=== PATIENT | male | born 1985 | race Two or more races ===

== ENCOUNTER 2016-10-20 07:55 | Emergency (ER) | payer MEDICAID ==
[2016-10-20] MEDS ORDERED: NS 1,000 ML IV ONE (08:39)
--- NOTE | 2016-10-20 08:45 | EDPHY ---
H & P Stated Complaint: "FEELS DEHYDRATED" FOR 24 HOURS, Time Seen by Provider: 10/20/16 08:10 HPI/ROS: CHIEF COMPLAINT: dehydration, flank pain HISTORY OF PRESENT ILLNESS: 31-year-old male presents emergency complaining of dehydration and "kidney pain". Pt is homeless and has been walking a lot the last few days. He states he went 2 days without drinking anything because the water everywhere didn't taste right. He reports decreased urination. Patient has a history anxiety and depression. He takes gabapentin and Effexor. Patient reports he takes some twice daily and he feels like they keep him awake at night. He has an appointment with his psychiatrist in the next couple weeks and he will review his meds at this time. Patient states he has not use methamphetamines for 7 months. He denies auditory or visual hallucinations. Patient denies nausea, vomiting or diarrhea, no abdominal pain. No fevers. REVIEW OF SYSTEMS: A comprehensive 10 point review of systems is otherwise negative aside from elements mentioned in the history of present illness. Source: Patient Exam Limitations: No limitations - Personal History Current Tetanus/Diphtheria Vaccine: Yes Current Tetanus Diphtheria and Acellular Pertussis (TDAP): Yes - Medical/Surgical History Hx Asthma: No Hx Chronic Respiratory Disease: No Hx Diabetes: No Hx Cardiac Disease: No Hx Renal Disease: No Hx Cirrhosis: No Hx Alcoholism: No Hx HIV/AIDS: No Hx Splenectomy or Spleen Trauma: No Other PMH: bipolar, ANXIETY, - Social History Smoking Status: Current every day smoker - Physical Exam Exam: Physical Exam Gen: Alert and Oriented, NAD HEENT: PERRL, dry mucous membranes NECK: no meningismus CV: regular rate and regular rhythm PULM: CTAB, no wheezes ABDOMEN: soft, non tender to palpation, BS present BACK: No CVA tenderness NEURO: Neurologically grossly intact EXTREMITIES: normal appearing SKIN: no rash or break in skin on exposed skin PSYCH: answers questions appropriately. Constitutional: Initial Vital Signs Temperature (C) 36.7 C 10/20/16 07:58 Heart Rate 85 10/20/16 07:58 Respiratory Rate 16 10/20/16 07:58 Blood Pressure 115/62 10/20/16 07:58 O2 Sat (%) 97 10/20/16 07:58 O2 Delivery Mode Room Air Allergies/Adverse Reactions: No Known Allergies Allergy (Verified 03/14/16 13:52) Home Medications: Medication Instructions Recorded Gabapentin [Neurontin 300 MG (*)] 600 mg PO TID 01/03/16 Medical Decision Making ED Course/Re-evaluation: IV established, i-STAT obtained to evaluate for renal function, urinalysis obtained, patient is given 1 L of normal saline. Chemistries and urinalysis are unremarkable. Patient has normal vital signs. He reports feeling better after receiving IV fluids. He will be discharged home. I have encouraged him to continue drinking water. The patient has an appointment with his psychiatrist in the next couple weeks to evaluate his medications that the patient thinks are keeping him awake at night. The patient is given return precautions for any new symptoms or concerns. Differential Diagnosis: Diagnosis considered but not limited to urinary tract infection, dehydration, pyelonephritis - Data Points Laboratory Results: 10/20/16 10/20/16 08:53 08:50 POC Hgb 13.9 gm/dL L gm/dL (14.5-17.3) POC Hct 41 % L % (42.8-50.6) POC Sodium 139 mEq/L mEq/L (134-144) POC Potassium 4.2 mEq/L mEq/L (3.3-5.0) POC Chloride 102 mEq/L mEq/L (96-108) POC BUN 12 mg/dL mg/dL (7-23) POC Creatinine 0.8 mg/dL mg/dL (0.8-1.5) POC Glucose 118 mg/dL H mg/dL (70-100) Urine Color PALE YELLOW Urine Appearance CLEAR Urine pH 7.0 (5.0-7.5) Ur Specific [place] 1.006 (1.002-1.030) Urine Protein NEGATIVE (NEGATIVE) Urine Ketones NEGATIVE (NEGATIVE) Urine Blood NEGATIVE (NEGATIVE) Urine Nitrate NEGATIVE (NEGATIVE) Urine Bilirubin NEGATIVE (NEGATIVE) Urine Urobilinogen NEGATIVE EU EU (0.2-1.0) Ur Leukocyte Esterase NEGATIVE (NEGATIVE) Ur Culture Indicated? NOT INDICATED (NI) Urine Glucose NEGATIVE (NEGATIVE) Medications Given: Discontinued Medications Sodium Chloride (Ns) 1,000 mls @ 0 mls/hr IV ONCE ONE PRN Reason: Wide Open Stop: 10/20/16 08:40 Last Admin: 10/20/16 09:00 Dose: 1,000 mls Point of Care Test Results: 10/20/16 08:53 POC Sodium 139 POC Potassium 4.2 POC Chloride 102 POC BUN 12 POC Creatinine 0.8 POC Glucose 118 H Departure - Departure Disposition: Home, Routine, Self-Care Clinical Impression: Homelessness Condition: Good Instructions: Dehydration (ED) Additional Instructions: You need to drink plenty of water, this is important. Follow-up with your psychiatrist as scheduled to discuss your medications that keep you awake. Referrals: JAMAICA MURRAY [Other] - As per Instructions
[2016-10-20 09:07] LABS: COLOR PALE YELLOW; LEUKOCYTE ESTERASE,URINE NEGATIVE (NEGATIVE); NITRITE,URINE NEGATIVE (NEGATIVE)
[2016-10-20 09:46] VITALS: BP 110/67; PULSE 82; RESP 18; TEMP 98.2; O2SAT 95
== END 2016-10-20 09:53 | disposition home or self-care (01) ==
DX: Z59.0 Homelessness (principal); F17.200 Nicotine dependence, unspecified, uncomplicated
CPT/HCPCS: 82947-QW

== ENCOUNTER 2016-11-03 18:11 | Emergency (ER) | payer MEDICAID ==
[2016-11-03 18:32] VITALS: O2SAT 96
[2016-11-03] MEDS ORDERED: NS 1,000 ML IV ONE (18:46)
--- NOTE | 2016-11-03 18:46 | EDPHY ---
H & P Time Seen by Provider: 11/03/16 18:28 HPI/ROS: Chief complaint. Shocking sensation HPI. 31-year-old male presents with 5 days of shocking sensations that come in waves to face arms and legs. No precipitating factors. It is not worse with movement or breathing. He has no headache or change in his vision. No neck pain, chest pain, shortness of breath, abdominal pain. He does have somewhat soreness to his low back. No swelling. No trauma. He has a history of anxiety and depression and bipolar illness and has not been taking his Neurontin and FX or regularly for the last 5 days. No similar symptoms previously ROS Constitutional. no fever/chills, no weakness Eyes. no problems with vision ENT. no sore throat, no nasal drainage Cardiovascular. no chest pain Respiratory. no shortness of breath, no cough Abdominal. no abdominal pain, no nausea/vomiting, no diarrhea . no problems urinating MS. no calf pain/swelling, no neck/back pain, no joint pain Skin. no rash Lymph. no swollen glands Neuro. Shocking sensation to face arms and legs Past Medical/Surgical History: Anxiety, depression, bipolar illness Social History: Single, daily smoker, no alcohol Smoking Status: Current every day smoker Physical Exam: General Appearance: Alert well-developed male no distress vital signs are stay Eyes: Pupils equal and round no pallor or injection. ENT, Mouth: Mucous membranes are moist. Respiratory: There are no retractions, lungs are clear to auscultation. Cardiovascular: Regular rate and rhythm. Gastrointestinal: Abdomen is soft and nontender, no masses, bowel sounds normal. Neurological: Awake and alert, sensory and motor exams grossly normal. Skin: Warm and dry, no rashes. Musculoskeletal: Neck is supple nontender. Extremities symmetrical, full range of motion. Psychiatric: Patient is oriented X 3, there is no agitation. Constitutional: Initial Vital Signs Temperature (C) 36.9 C 11/03/16 18:30 Heart Rate 68 11/03/16 18:30 Respiratory Rate 16 11/03/16 18:30 Blood Pressure 121/78 H 11/03/16 18:30 O2 Sat (%) 96 11/03/16 18:30 O2 Delivery Mode Room Air Allergies/Adverse Reactions: No Known Allergies Allergy (Verified 03/14/16 13:52) Home Medications: Medication Instructions Recorded Gabapentin [Neurontin 300 MG (*)] 600 mg PO TID 01/03/16 Effexor 11/03/16 Medical Decision Making - Diagnostics EKG Interpretation: EKG interpreted by me shows normal sinus rhythm normal interval and axis. QRS is normal there is no significant ST elevation or depression. No arrhythmia. The rate is 65 Procedures: IV normal saline ED Course/Re-evaluation: Re-evaluation at 7:30 p.m.. Patient is stable. He and I discussed EKG and laboratory evaluation. We discussed treatment plan including criteria for return importance of follow-up and further evaluation. He is encouraged to take his medication regularly. Patient expresses understanding and agreement Differential Diagnosis: Patient complains of paresthesias and shocking type sensation. This could be a neuropathy. He is encouraged to take Neurontin which he has been per already prescribed for this. There is no evidence for acute illness. - Data Points Laboratory Results: Laboratory Results 11/03/16 19:00 11/03/16 19:00 11/03/16 11/03/16 19:00 19:00 WBC 5.93 10^3/uL 10^3/uL (3.80-9.50) RBC 4.30 10^6/uL L 10^6/uL (4.40-6.38) Hgb 13.7 g/dL g/dL (13.7-17.5) Hct 39.6 % L % (40.0-51.0) MCV 92.1 fL fL (81.5-99.8) MCH 31.9 pg pg (27.9-34.1) MCHC 34.6 g/dL g/dL (32.4-36.7) RDW 13.1 % % (11.5-15.2) Plt Count 230 10^3/uL 10^3/uL (150-400) MPV 8.9 fL fL (8.7-11.7) Neut % (Auto) 44.0 % % (39.3-74.2) Lymph % (Auto) 38.6 % % (15.0-45.0) Keith % (Auto) 10.6 % % (4.5-13.0) Eos % (Auto) 5.6 % % (0.6-7.6) Baso % (Auto) 0.5 % % (0.3-1.7) Nucleat RBC Rel Count 0.0 % % (0.0-0.2) Absolute Neuts (auto) 2.61 10^3/uL 10^3/uL (1.70-6.50) Absolute Lymphs (auto) 2.29 10^3/uL 10^3/uL (1.00-3.00) Absolute Monos (auto) 0.63 10^3/uL 10^3/uL (0.30-0.80) Absolute Eos (auto) 0.33 10^3/uL 10^3/uL (0.03-0.40) Absolute Basos (auto) 0.03 10^3/uL 10^3/uL (0.02-0.10) Absolute Nucleated RBC 0.00 10^3/uL 10^3/uL (0-0.01) Immature Gran % 0.7 % % (0.0-1.1) Immature Gran # 0.04 10^3/uL 10^3/uL (0.00-0.10) Sodium 139 mEq/L mEq/L (134-144) Potassium 4.2 mEq/L mEq/L (3.5-5.2) Chloride 105 mEq/L mEq/L (97-110) Carbon Dioxide 22 mEq/l mEq/l (22-31) Anion Gap 12 mEq/L mEq/L (8-16) BUN 11 mg/dL mg/dL (7-23) Creatinine 0.9 mg/dL mg/dL (0.7-1.3) Estimated GFR > 60 Glucose 105 mg/dL H mg/dL (70-100) Calcium 8.7 mg/dL mg/dL (8.5-10.4) Troponin I < 0.012 ng/mL ng/mL (0-0.034) Medications Given: Discontinued Medications Sodium Chloride (Ns) 1,000 mls @ 0 mls/hr IV ONCE ONE PRN Reason: Wide Open Stop: 11/03/16 18:47 Last Admin: 11/03/16 19:00 Dose: 1,000 mls Departure - Departure Disposition: Home, Routine, Self-Care Clinical Impression: Paresthesias Condition: Good Instructions: Paresthesia (ED) Additional Instructions: Take her medication as prescribed. Return for worsening symptoms. Re- evaluation by your regular physician this week to discuss medication and possible change. Referrals: CLINICA CAMPESINA,. [Primary Care Provider] - 2-3 days, call for appt.
--- NOTE | 2016-11-03 18:56 | CPEKG ---
Heart Rate: 65 RR Interval: 923 P-R Interval: 104 QRSD Interval: 124 QT Interval: 408 QTC Interval: 425 P [place]: 9 QRS [place]: 76 T Wave [place]: 21 EKG Severity - ABNORMAL ECG - EKG Impression: SINUS RHYTHM EKG Impression: VENT PREEXCITATION, LEFT ACCESSORY PATHWAY Electronically Signed By: Palmer Garcia 03-Nov-2016 19:42:37
[2016-11-03 19:06] LABS: % IMMATURE GRANULYOCYTES 0.7 % (0.0-1.1); ABSOLUTE IMMATURE GRANULOCYTES 0.04 10^3/uL (0.00-0.10); ADD DIFF? NO; ADD MORPH? NO; ADD SCAN? NO; ATYPICAL LYMPHOCYTE FLAG 10 (0-99); FRAGMENT RBC FLAG 0 (0-99); HEMATOCRIT 39.6 % (40.0-51.0); HEMOGLOBIN 13.7 g/dL (13.7-17.5); LEFT SHIFT FLG 0 (0-99); LIPEMIA HEMOLYSIS FLAG 90 (0-99); MEAN CELL HEMOGLOBIN 31.9 pg (27.9-34.1); MEAN CELL HEMOGLOBIN CONCENTR. 34.6 g/dL (32.4-36.7); MEAN CELL VOLUME 92.1 fL (81.5-99.8); MEAN PLATELET VOLUME 8.9 fL (8.7-11.7); PLATELET CLUMPS FLAG 0 (0-99); PLATELET COUNT 230 10^3/uL (150-400); RED CELL DISTRIBUTION WIDTH 13.1 % (11.5-15.2)
[2016-11-03 19:23] LABS: ANION GAP 12 mEq/L (8-16); CALCIUM 8.7 mg/dL (8.5-10.4); CARBON DIOXIDE 22 mEq/l (22-31); CHLORIDE 105 mEq/L (97-110); CREATININE 0.9 mg/dL (0.7-1.3); GLOMERULAR FILTRATION RATE > 60; GLUCOSE 105 mg/dL (70-100); POTASSIUM 4.2 mEq/L (3.5-5.2); SODIUM 139 mEq/L (134-144)
[2016-11-03 19:29] LABS: TROPONIN I < 0.012 ng/mL (0-0.034)
[2016-11-03 19:52] VITALS: BP 122/64; PULSE 64; RESP 18; TEMP 98.2
== END 2016-11-03 19:44 | disposition home or self-care (01) ==
LOC: CED 18:11
DX: R20.2 Paresthesia of skin (principal); F17.200 Nicotine dependence, unspecified, uncomplicated
CPT/HCPCS: 80048-PO; 84484-PO; 85025-PO

== ENCOUNTER 2016-11-16 07:43 | Emergency (ER) | payer MEDICAID ==
[2016-11-16 07:51] VITALS: TEMP 97.7
--- NOTE | 2016-11-16 08:13 | CPEKG ---
Heart Rate: 67 RR Interval: 896 P-R Interval: 152 QRSD Interval: 84 QT Interval: 408 QTC Interval: 431 P [place]: 15 QRS [place]: 39 T Wave [place]: 47 EKG Severity - NORMAL ECG - EKG Impression: SINUS RHYTHM Electronically Signed By: Guille Bedolla 16-Nov-2016 08:48:07
--- NOTE | 2016-11-16 08:15 | EDPHY ---
H & P Stated Complaint: took 2000mg gabapentin/for increased anxiety/stopped effexor 2 wks ago/naus HPI/ROS: CHIEF COMPLAINT: Palpitations, paresthesia, chest pain, excessive gabapentin intake HISTORY OF PRESENT ILLNESS: Patient was feeling increasingly anxious last night , thus he took additional Neurontin. He normally takes 1200 mg twice daily. He take this yesterday morning and again at 7:00 p.m.. 1 hour later he was not feeling any relief, thus he took an additional 2000 mg of Neurontin. This was with no intent of harm, but only with the intent of improving his anxiety. He said he went to sleep and awoke with some chest pain, palpitations and paresthesias this morning he describes his arm just felt like they are asleep at times, more on the left than the right. Nonexertional. Nonradiating. No diaphoresis. No nausea or vomiting. No shortness of breath. No trauma or injury. No recent travel or surgery. No history of venous thrombolic event. No other associated complaints or modifying factors. REVIEW OF SYSTEMS: Ten systems reviewed and are negative unless otherwise noted in the HPI PERTINENT MEDICAL HISTORY: Anxiety disorder SOCIAL HISTORY: Smoker EXAMINATION General Appearance: Alert, no distress, anxious Head: normocephalic, atraumatic Eyes: Pupils equal and round, no conjunctival pallor or injection ENT, Mouth: Mucous membranes moist Neck: Normal inspection, supple, non-tender Respiratory: Lungs are clear to auscultation. No wheezing, rhonchi or crackles. Cardiovascular: Regular rate and rhythm. No murmur. Pulses intact distally. Gastrointestinal: Abdomen is soft and nontender Back: non-tender, no bony abnormalities Neurological: GCS 15. A&O, nonfocal, normal gait. No pronator drift. No dysmetria. Strength is symmetric in all 4 limbs. Skin: Warm and dry, no rash Extremities: Nontender, no pedal edema Psychiatric: Anxious, no suicidal or homicidal ideation. DIFFERENTIAL DIAGNOSES: Including but not limited to adverse drug reaction, ACS, electrolyte disturbance , calcium disturbance, dehydration, anxiety reaction, accidental overdose MDM: 8:10 a.m. Generalized an atypical chest pain with some palpitations. Nonexertional. Non radiating. History and examination do not suggest cardiac etiology. I suspect This is after taking an additional 2000 mg of gabapentin at 8:00 p.m. last night, after taking his normal dose of 1200 mg at 7:00 p.m.. No acute findings on examination. Vital signs stable. EKG is being obtained. I suspect this is more related to the medication or anxiety. CAD risk factors include smoking. No other risk factors or family history. 8:30 a.m. EKG is sinus rhythm without acute ischemia. 9:24 a.m. Laboratory studies are negative including troponin. This in conjunction with his history examination which do not suggest any cardiac etiology for his chest pain. It is very atypical likely related to anxiety. He will be discharged home stable condition. He is to refrain from taking excessive Neurontin. I will provide a prescription for hydroxyzine to supplement his anxiety medication. He is to follow up with primary care physician for further medication care. Return here to the emergency department for any change in the chest pain, radiating chest pain, diaphoresis, exertional chest pain. He is comfortable with this plan and discharged home stable condition. EKG interpretation: Dr. Bedolal SUPERVISION: Patient was evaluated in conjunction with the supervising physician. Please see their note for details. Source: Patient, RN/MD Exam Limitations: No limitations - Personal History Current Tetanus/Diphtheria Vaccine: Yes - Medical/Surgical History Hx Asthma: No Hx Chronic Respiratory Disease: No Hx Diabetes: No Hx Cardiac Disease: No Hx Renal Disease: No Hx Cirrhosis: No Hx Alcoholism: No Hx HIV/AIDS: No Hx Splenectomy or Spleen Trauma: No Other PMH: bipolar, ANXIETY, - Social History Smoking Status: Current every day smoker Constitutional: Initial Vital Signs Temperature (C) 97.7 F 11/16/16 07:48 Heart Rate 74 11/16/16 07:48 Respiratory Rate 20 11/16/16 07:48 Blood Pressure 100/58 L 11/16/16 07:48 O2 Sat (%) 95 11/16/16 07:48 O2 Delivery Mode Room Air Allergies/Adverse Reactions: No Known Allergies Allergy (Verified 11/16/16 07:48) Home Medications: Medication Instructions Recorded Gabapentin [Neurontin 300 MG (*)] 600 mg PO TID 01/03/16 hydrOXYzine HCL [Hydroxyzine HCl] 50 mg PO Q6-8PRN PRN #20 tablet 11/16/16 Medical Decision Making - Data Points Laboratory Results: 11/16/16 08:39 Sodium Pending Potassium Pending Chloride Pending Carbon Dioxide Pending Anion Gap Pending BUN Pending Creatinine Pending Estimated GFR Pending Glucose Pending Calcium Pending Troponin I Pending Medications Given: Discontinued Medications Sodium Chloride (Ns) 1,000 mls @ 0 mls/hr IV ONCE ONE; Wide Open PRN Reason: Protocol Stop: 11/16/16 08:30 Last Admin: 11/16/16 08:40 Dose: 1,000 mls Departure - Departure Disposition: Home, Routine, Self-Care Clinical Impression: Palpitations, Paresthesia, Anxiety Adverse drug reaction Qualifiers: Encounter type: initial encounter Qualified Code(s): T88.7XXA - Unspecified adverse effect of drug or medicament, initial encounter Condition: Good Instructions: Anxiety (ED) Additional Instructions: Return to normal dosing Neurontin. Contact primary care physician for further care and further medication. Hydroxyzine as prescribed as needed in the interim Return to the emergency department for any change in pain, radiating pain, diaphoresis, exertional chest pain Referrals: JAMAICA CHAMBERLAIN [Primary Care Provider] - As per Instructions Prescriptions: hydrOXYzine HCL [Hydroxyzine HCl] 50 mg PO Q6-8PRN PRN #20 tablet PRN Reason: Itching
[2016-11-16] MEDS ORDERED: NS 1,000 ML IV ONE (08:29)
[2016-11-16 09:06] LABS: ANION GAP 12 mEq/L (8-16); CALCIUM 9.3 mg/dL (8.5-10.4); CARBON DIOXIDE 21 mEq/l (22-31); CHLORIDE 106 mEq/L (97-110); GLOMERULAR FILTRATION RATE > 60; GLUCOSE 115 mg/dL (70-100); POTASSIUM 3.8 mEq/L (3.5-5.2); SODIUM 139 mEq/L (134-144)
[2016-11-16 09:18] LABS: TROPONIN I < 0.012 ng/mL (0-0.034)
[2016-11-16 09:43] VITALS: BP 113/68; PULSE 77; RESP 16; O2SAT 93
== END 2016-11-16 09:42 | disposition home or self-care (01) ==
DX: R00.2 Palpitations (principal); R20.2 Paresthesia of skin; F41.9 Anxiety disorder, unspecified; F17.200 Nicotine dependence, unspecified, uncomplicated; T42.6X5A Adverse effect of other antiepileptic and sedative-hypnotic drugs, initial encounter

== ENCOUNTER 2016-11-18 17:17 | Emergency (ER) | payer MEDICAID ==
[2016-11-18 17:36] VITALS: RESP 16
[2016-11-18] MEDS ORDERED: NS 1,000 ML IV ONE (17:43)
--- NOTE | 2016-11-18 17:53 | EDPHY ---
H & P Stated Complaint: pt states on/off hand numbness/shaky / SOB x 4 less than 10 min episodes Time Seen by Provider: 11/18/16 17:34 HPI/ROS: CHIEF COMPLAINT: "I feel like I have heat stroke" HISTORY OF PRESENT ILLNESS: This is a 31-year-old male with history of bipolar and anxiety for which he takes Effexor as well as gabapentin. He tells me he recently started working a job which involves being outside. He presents today with concerns that he may have developed heat stroke. Around 11 o'clock this morning he developed shortness of breath, shakiness, increased respiratory rate , numbness and tingling in his fingers, and felt lightheaded. He reports that he was sweating profusely. Was drinking water. Had some nausea but no vomiting. No chest pain. Patient eventually went home took a shower. He presents currently stating that he continues to feel quite dehydrated, has tingling in his fingertips and feels short of breath. Of note the patient recently stopped taking his Effexor about 2 weeks ago. He is concerned that his dose of gabapentin, 3200 mg total daily, is too high. He is concerned taking this much gabapentin with his new job outside. REVIEW OF SYSTEMS: Aside from elements discussed in the HPI, a comprehensive 10-point review of systems was reviewed and is negative. PAST MEDICAL HISTORY: Bipolar disorder SOCIAL HISTORY: Smoker, no alcohol use. VITAL SIGNS Reviewed by me. Temperature is 36.5degrees on my examination. GENERAL: Well-developed, well-nourished, resting comfortably in no respiratory distress. HEENT: Atraumatic. Eyes: No icterus, no injection. Mouth: moist mucous membranes. No erythema or lesions. Neck: supple with no adenopathy. LUNGS: Clear to auscultation bilaterally, no wheezes, rhonchi or rales. CARDIAC: Regular rate and rhythm, no rubs, murmurs or gallops. ABDOMEN: Soft, mild right upper quadrant tenderness. No guarding or rebound. Nondistended, bowel sounds normal. BACK: No CVA tenderness. EXTREMITIES: No trauma. No edema. Range of motion is normal throughout. NEURO: Alert and oriented, grossly nonfocal. SKIN: Warm and dry, no rash. PSYCHIATRIC: Normal mentation, no agitation. - Personal History Current Tetanus/Diphtheria Vaccine: Unsure Current Tetanus Diphtheria and Acellular Pertussis (TDAP): Unsure - Medical/Surgical History Hx Asthma: No Hx Chronic Respiratory Disease: No Hx Diabetes: No Hx Cardiac Disease: No Hx Renal Disease: No Hx Cirrhosis: No Hx Alcoholism: No Hx HIV/AIDS: No Hx Splenectomy or Spleen Trauma: No Other PMH: bipolar, ANXIETY, - Social History Smoking Status: Current every day smoker Constitutional: Initial Vital Signs Temperature (C) 36.7 C 11/18/16 17:20 Heart Rate 70 11/18/16 17:20 Respiratory Rate 16 11/18/16 17:20 Blood Pressure 135/86 H 11/18/16 17:20 O2 Sat (%) 95 11/18/16 17:20 O2 Delivery Mode Room Air Allergies/Adverse Reactions: No Known Allergies Allergy (Verified 11/18/16 17:36) Home Medications: Medication Instructions Recorded Gabapentin [Neurontin 300 MG (*)] 1,200 mg PO TID 01/03/16 Effexor 11/18/16 Medical Decision Making - Diagnostics EKG Interpretation: 12-LEAD EKG: Please see the full report in [facility]. My interpretation: Sinus rhythm, presence of a delta wave. EKG is concerning for WPW. ED Course/Re-evaluation: 31-year-old male presenting to the emergency department with complaints of shakiness, shortness of breath, nausea, feeling like he has heat stroke, anxiety , and questionable palpitations. Patient's temperature on arrival is 36.7. Sinus rhythm on the monitor. EKG demonstrates delta wave in concern for WPW. IV was placed. Patient received a L of normal saline. Electrolytes were checked including a normal potassium. Troponin is negative. Liver function tests and CK are normal. Creatinine is normal. Patient was reassured regarding his normal vital signs, normal temperature, normal blood work. I do not believe the patient is suffering from heat stroke. There is no evidence of significant dehydration on his laboratory workup. Patient's course was discussed with Dr. Das. Dr. Das reviewed the patient 's EKG in agrees that it is concerning for WPW. Patient will be contacted by [facility] for further evaluation. I explained to the patient the significance of his EKG. We discussed possibility that some of his anxiety and palpitations may be related to an arrhythmia. I advised him to consult with his primary care physician regarding his dose of gabapentin if he feels like he wants to be on a lower dose. Strict precautions were discussed including returning immediately to the emergency department or call 911 if he has severe palpitations, lightheadedness, fainting , chest pain. Patient will follow up as directed. Differential Diagnosis: Differential diagnoses for the patient's symptom complex was considered including but not limited to anxiety, electrolyte abnormalities, heat stroke, palpitations, WPW, atrial fibrillation, atrial flutter, medication effect. - Data Points Laboratory Results: Laboratory Results 11/18/16 17:55 11/18/16 17:55 11/18/16 11/18/16 17:55 17:55 WBC 7.00 10^3/uL 10^3/uL (3.80-9.50) RBC 4.70 10^6/uL 10^6/uL (4.40-6.38) Hgb 14.8 g/dL g/dL (13.7-17.5) Hct 42.5 % % (40.0-51.0) MCV 90.4 fL fL (81.5-99.8) MCH 31.5 pg pg (27.9-34.1) MCHC 34.8 g/dL g/dL (32.4-36.7) RDW 13.2 % % (11.5-15.2) Plt Count 211 10^3/uL 10^3/uL (150-400) MPV 9.5 fL fL (8.7-11.7) Neut % (Auto) 61.1 % % (39.3-74.2) Lymph % (Auto) 24.7 % % (15.0-45.0) Kerr % (Auto) 12.1 % % (4.5-13.0) Eos % (Auto) 1.3 % % (0.6-7.6) Baso % (Auto) 0.4 % % (0.3-1.7) Nucleat RBC Rel Count 0.0 % % (0.0-0.2) Absolute Neuts (auto) 4.27 10^3/uL 10^3/uL (1.70-6.50) Absolute Lymphs (auto) 1.73 10^3/uL 10^3/uL (1.00-3.00) Absolute Monos (auto) 0.85 10^3/uL H 10^3/uL (0.30-0.80) Absolute Eos (auto) 0.09 10^3/uL 10^3/uL (0.03-0.40) Absolute Basos (auto) 0.03 10^3/uL 10^3/uL (0.02-0.10) Absolute Nucleated RBC 0.00 10^3/uL 10^3/uL (0-0.01) Immature Gran % 0.4 % % (0.0-1.1) Immature Gran # 0.03 10^3/uL 10^3/uL (0.00-0.10) Sodium 140 mEq/L mEq/L (134-144) Potassium 3.8 mEq/L mEq/L (3.5-5.2) Chloride 102 mEq/L mEq/L (97-110) Carbon Dioxide 19 mEq/l L mEq/l (22-31) Anion Gap 19 mEq/L H mEq/L (8-16) BUN 12 mg/dL mg/dL (7-23) Creatinine 1.0 mg/dL mg/dL (0.7-1.3) Estimated GFR > 60 Glucose 102 mg/dL H mg/dL (70-100) Calcium 9.4 mg/dL mg/dL (8.5-10.4) Total Bilirubin 0.8 mg/dL mg/dL (0.1-1.4) Conjugated Bilirubin 0.3 mg/dL mg/dL (0.0-0.5) Unconjugated Bilirubin 0.5 mg/dL mg/dL (0.0-1.1) AST 23 IU/L IU/L (17-59) ALT 24 IU/L IU/L (21-72) Alkaline Phosphatase 65 IU/L IU/L (38-126) Creatine Kinase 298 IU/L H IU/L (0-224) CK-MB (CK-2) Fraction 1.49 ng/mL ng/mL (0-4.55) CK-MB (CK-2) % 0.5 % % (0.0-4.0) Creatine Kinase Interp NEGATIVE (NEGATIVE) Troponin I < 0.012 ng/mL ng/mL (0-0.034) Total Protein 7.8 g/dL g/dL (6.3-8.2) Albumin 4.3 g/dL g/dL (3.5-5.0) Medications Given: Discontinued Medications Sodium Chloride (Ns) 1,000 mls @ 0 mls/hr IV ONCE ONE; Wide Open PRN Reason: Protocol Stop: 11/18/16 17:44 Last Admin: 11/18/16 17:58 Dose: 1,000 mls Departure - Departure Disposition: Home, Routine, Self-Care Clinical Impression: Heart palpitations, WPW syndrome, Anxiety Condition: Good Instructions: Anxiety (ED), Ckawi-Fsswoawhk-Rohcb Syndrome (ED) Additional Instructions: If your concerned regarding your dose of gabapentin, you need to follow up with Dr. Smith. I do not believe that it is safe to abruptly stop this medication but you may slowly start to decrease it. While you are outside working, you need to make every effort to take frequent breaks, drink plenty of fluid, and stay well hydrated and cool. Do not drink excessive amounts of caffeine. Your EKG today is concerning for syndrome call WPW. This may be causing some palpitations. It is important that you follow up with a oyster sorter. I have discussed her case with Dr. Epi Das. He will be contacted by cardiology. They will call your cell phone. If you do not hear from them within the next 1- 2 days, you may call [facility]. Occasionally WPW may result in a very rapid heart rate associated with lightheadedness, dizziness, and fainting. If this occurs, please call 911 or proceed immediately to the closest emergency department. Referrals: JAMAICA SMITH [Primary Care Provider] - As per Instructions Epi Das MD [Medical Doctor] - 1-2 days without fail
[2016-11-18 18:01] LABS: % IMMATURE GRANULYOCYTES 0.4 % (0.0-1.1); ABSOLUTE IMMATURE GRANULOCYTES 0.03 10^3/uL (0.00-0.10); ADD DIFF? NO; ADD MORPH? NO; ADD SCAN? NO; ATYPICAL LYMPHOCYTE FLAG 0 (0-99); FRAGMENT RBC FLAG 0 (0-99); HEMATOCRIT 42.5 % (40.0-51.0); HEMOGLOBIN 14.8 g/dL (13.7-17.5); LEFT SHIFT FLG 0 (0-99); LIPEMIA HEMOLYSIS FLAG 90 (0-99); MEAN CELL HEMOGLOBIN 31.5 pg (27.9-34.1); MEAN CELL HEMOGLOBIN CONCENTR. 34.8 g/dL (32.4-36.7); MEAN CELL VOLUME 90.4 fL (81.5-99.8); MEAN PLATELET VOLUME 9.5 fL (8.7-11.7); PLATELET CLUMPS FLAG 0 (0-99); PLATELET COUNT 211 10^3/uL (150-400); RED CELL DISTRIBUTION WIDTH 13.2 % (11.5-15.2)
--- NOTE | 2016-11-18 18:04 | CPEKG ---
Heart Rate: 67 RR Interval: 896 P-R Interval: 108 QRSD Interval: 124 QT Interval: 436 QTC Interval: 461 P [place]: 8 QRS [place]: 74 T Wave [place]: 4 EKG Severity - ABNORMAL ECG - EKG Impression: SINUS RHYTHM EKG Impression: VENT PREEXCITATION, LEFT ACCESSORY PATHWAY Electronically Signed By: Elicia Rose 19-Nov-2016 01:23:31
[2016-11-18 18:20] LABS: ALANINE AMINOTRANSFERASE 24 IU/L (21-72); ALBUMIN 4.3 g/dL (3.5-5.0); ALKALINE PHOSPHATASE 65 IU/L (38-126); ANION GAP 19 mEq/L (8-16); ASPARTATE AMINOTRANSFERASE 23 IU/L (17-59); BILIRUBIN,TOTAL 0.8 mg/dL (0.1-1.4); BILIRUBIN-CONJUGATED 0.3 mg/dL (0.0-0.5); BILIRUBIN-UNCONJUGATED 0.5 mg/dL (0.0-1.1); CALCIUM 9.4 mg/dL (8.5-10.4); CARBON DIOXIDE 19 mEq/l (22-31); CHLORIDE 102 mEq/L (97-110); GLOMERULAR FILTRATION RATE > 60; GLUCOSE 102 mg/dL (70-100); POTASSIUM 3.8 mEq/L (3.5-5.2); SODIUM 140 mEq/L (134-144); TOTAL PROTEIN 7.8 g/dL (6.3-8.2)
[2016-11-18 18:24] LABS: TROPONIN I < 0.012 ng/mL (0-0.034)
[2016-11-18 18:39] LABS: CK-MB INTERPRETATION NEGATIVE (NEGATIVE); CREATINE KINASE-MB FRACTION 1.49 ng/mL (0-4.55)
[2016-11-18 18:59] VITALS: BP 129/73; PULSE 62; TEMP 97.7; O2SAT 98
== END 2016-11-18 19:03 | disposition home or self-care (01) ==
LOC: CED 17:17
DX: I45.6 Pre-excitation syndrome (principal); F17.200 Nicotine dependence, unspecified, uncomplicated
CPT/HCPCS: 80048-PO; 80076-PO; 82550-PO; 82553-PO; 84484-PO; 85025-PO

== ENCOUNTER 2017-02-05 22:11 | Emergency (ER) | payer MEDICAID ==
[2017-02-05 22:24] VITALS: BP 120/73; PULSE 99; RESP 18; TEMP 97.9; O2SAT 96
--- NOTE | 2017-02-05 22:35 | EDPHY ---
H & P Stated Complaint: constipation x 5 days and a hemmaroid Time Seen by Provider: 02/05/17 22:23 HPI/ROS: CHIEF COMPLAINT: Hemorrhoid, constipation HISTORY OF PRESENT ILLNESS: The patient is a 31-year-old man who comes to the emergency department complaining of one-week constipation and now pain with bowel movements. He states that he has hemorrhoids. He has red streaks on the outside of his stool. No fever. Tender to palpation. He states that he has had to dig out his stool. He denies abdominal pain or vomiting. REVIEW OF SYSTEMS: Constitutional: denies: chills, fever, recent illness, recent injury EENTM: denies: blurred vision, double vision, nose congestion Respiratory: denies: cough, shortness of breath Cardiac: denies: chest pain, irregular heart rate, lightheadedness, palpitations Gastrointestinal/Abdominal: See HPI denies: abdominal pain, diarrhea, nausea, vomiting, Genitourinary: denies: dysuria, frequency, hematuria, pain Musculoskeletal: denies: joint pain, muscle pain Skin: denies: lesions, rash, jaundice, bruising Neurological: denies: headache, numbness, paresthesia, tingling, dizziness, weakness Hematologic/Lymphatic: denies: blood clots, easy bleeding, easy bruising Immunologic/allergic: denies: HIV/AIDS, transplant EXAM: GENERAL: Well-appearing, well-nourished and in no acute distress. HEAD: Atraumatic, normocephalic. EYES: Pupils equal round and reactive to light, extraocular movements intact, sclera anicteric, conjunctiva are normal. ENT: TMs normal, nares patent, oropharynx clear without exudates. Moist mucous membranes. NECK: Normal range of motion, supple without lymphadenopathy or JVD. LUNGS: Breath sounds clear to auscultation bilaterally and equal. No wheezes rales or rhonchi. HEART: Regular rate and rhythm without murmurs, rubs or gallops. ABDOMEN: Soft, nontender, normoactive bowel sounds. No guarding, no rebound. No masses appreciated. Rectal: Patient has 2 internal hemorrhoids with minimal bleeding visible. Not thrombosed. Significant pain with examination. BACK: No CVA tenderness, no spinal tenderness, step-offs or deformities EXTREMITIES: Normal range of motion, no pitting or edema. No clubbing or cyanosis. NEUROLOGICAL: Cranial nerves II through XII grossly intact. Normal speech, normal gait. 5/5 strength, normal movement in all extremities, normal sensation PSYCH: Normal mood, normal affect. SKIN: Warm, dry, normal turgor, no visible rashes or lesions. Source: Patient Exam Limitations: No limitations - Medical/Surgical History Hx Asthma: No Hx Chronic Respiratory Disease: No Hx Diabetes: No Hx Cardiac Disease: No Hx Renal Disease: No Hx Cirrhosis: No Hx Alcoholism: No Hx HIV/AIDS: No Hx Splenectomy or Spleen Trauma: No Other PMH: bipolar, ANXIETY, - Family History Significant Family History: No pertinent family hx - Social History Smoking Status: Current every day smoker Alcohol Use: None Drug Use: None Constitutional: Initial Vital Signs Temperature (C) 36.6 C 02/05/17 22:22 Heart Rate 99 02/05/17 22:22 Respiratory Rate 18 02/05/17 22:22 Blood Pressure 120/73 02/05/17 22:22 O2 Sat (%) 96 02/05/17 22:22 O2 Delivery Mode Room Air Allergies/Adverse Reactions: No Known Allergies Allergy (Verified 02/05/17 22:22) Home Medications: Medication Instructions Recorded Gabapentin [Neurontin 300 MG (*)] 1,200 mg PO TID 01/03/16 Medical Decision Making ED Course/Re-evaluation: Patient has internal hemorrhoids. They are not thrombosed. I suggested he use cortisone cream or preparation H with cortisone for the hemorrhoids. I also recommended MiraLax for his constipation and dietary changes. He will follow up with his primary care physician in the next 2 days. We discussed indications for returning to the emergency department. Differential Diagnosis: Partial list of the Differential diagnosis considered include but were not limited to; constipation, hemorrhoid and although unlikely based on the history and physical exam, I also considered thrombosed, fissure, ischemia, obstruction, hernia, abscess. I discussed these differential diagnoses and the plan with the patient as well as the usual and expected course. The patient understands that the diagnosis is provisional and that in medicine we are not always correct and that further workup is often warranted. Usual and customary warnings were given. All of the patient's questions were answered. The patient was instructed to return to the emergency department should the symptoms at all worsen or return, otherwise to followup with the physician as we discussed. Departure - Departure Disposition: Home, Routine, Self-Care Clinical Impression: Internal hemorrhoid, bleeding Constipation Qualifiers: Constipation type: unspecified constipation type Qualified Code(s): K59.00 - Constipation, unspecified Condition: Fair Instructions: Constipation (ED), Hemorrhoids (ED) Additional Instructions: Buy preparation H with cortisone or hydrocortisone cream [id number] and use it 3 times a day entire hemorrhage resolved. Use MiraLax 1 cap full every hour until you have loose stool and then titrate as discussed. Referrals: JAMAICA CHAMBERLAIN [Primary Care Provider] - As per Instructions
== END 2017-02-05 23:00 | disposition home or self-care (01) ==
LOC: CED 22:11
DX: K59.00 Constipation, unspecified (principal); K64.8 Other hemorrhoids; F17.200 Nicotine dependence, unspecified, uncomplicated

== ENCOUNTER 2017-04-16 07:25 | Emergency (ER) | payer MEDICAID ==
[2017-04-16 07:44] VITALS: BP 91/81; PULSE 91; RESP 18; TEMP 97.9; O2SAT 93
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
== END 2017-04-16 08:21 | disposition home or self-care (01) ==
LOC: CED 07:25
DX: Z77.098 Contact with and (suspected) exposure to other hazardous, chiefly nonmedicinal, chemicals (principal); F17.200 Nicotine dependence, unspecified, uncomplicated

== ENCOUNTER 2017-04-22 06:42 | Emergency (ER) | payer MEDICAID ==
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
[2017-04-22 07:52] LABS: COLOR YELLOW; LEUKOCYTE ESTERASE,URINE NEGATIVE (NEGATIVE); NITRITE,URINE NEGATIVE (NEGATIVE)
[2017-04-22 08:07] VITALS: BP 115/80; PULSE 85; RESP 18; TEMP 98.4; O2SAT 95
== END 2017-04-22 08:31 | disposition home or self-care (01) ==
DX: F19.10 Other psychoactive substance abuse, uncomplicated (principal)
CPT/HCPCS: 80305

== ENCOUNTER 2017-06-17 15:04 | Emergency (ER) | payer MEDICAID | END 2017-06-17 15:09 | disposition left against medical advice (07) | LOC: CED 15:04 | DX: Z53.21 Procedure and treatment not carried out due to patient leaving prior to being seen by health care provider (principal) ==

== ENCOUNTER 2017-06-24 14:13 | Emergency (ER) | payer MEDICAID ==
[2017-06-24 14:25] VITALS: BP 122/71; PULSE 65; RESP 16; TEMP 97.9; O2SAT 97
--- NOTE | 2017-06-24 14:44 | EDPHY ---
H & P Time Seen by Provider: 06/24/17 14:38 HPI/ROS: This patient presents with left ear discomfort. He said he had a feeling of the ear being clogged an after using a Q-tip in the ear notice some bleeding from the left ear prompting his visit. He had the clogged feeling in his ear for 2 days prior to trying the Q-tip. He denies any significant pain associated with this. He denies any other associated symptoms. He came in by private vehicle for evaluation. ROS: No fevers or chills. No other constitutional symptoms HEENT: No recent URI symptoms. No sore throat. No right ear symptoms. Neuro: No vertiginous symptoms. 5 point ROS is otherwise negative. Smoking Status: Current every day smoker Physical Exam: Physical Exam Vital signs are normal. General: No acute distress HEENT: Nose: Clear bilaterally. Ears: Right external canals clear and right TM is clear left external canal swollen with erythema. No-discharge. The degree of canal swelling obscures the anterior 1/3 of the tympanic membrane but the visible portion of the tympanic membrane is dull and erythematous. No obvious rupture. No active bleeding. Oropharynx: No erythema or exudates. No dysphonia. No drooling or stridor. Eyes: Pupils equal and react to light. Extraocular motions are intact. Neck: Supple with no meningismus. No lymphadenopathy Lungs: No respiratory distress Cardiac: Regular rate and rhythm with no murmur gallop or rub Skin: No rash or pallor. Neuro: Alert with no focal deficits noted. Initial differential diagnosis: Otitis media with otitis externa, potential perforated TM as I cannot visualize the anterior 1/3, mild external canal trauma from Q-tip Constitutional: Initial Vital Signs Temperature (C) 36.6 C 06/24/17 14:23 Heart Rate 65 06/24/17 14:23 Respiratory Rate 16 06/24/17 14:23 Blood Pressure 122/71 H 06/24/17 14:23 O2 Sat (%) 97 06/24/17 14:23 O2 Delivery Mode Room Air Allergies/Adverse Reactions: tree nut [Nuts] Allergy (Verified 04/16/17 07:37) Home Medications: Medication Instructions Recorded Gabapentin [Neurontin 300 MG (*)] 1,200 mg PO TID 01/03/16 Effexor 04/16/17 Amox Tr/K Clav (Augmentin) 500 mg PO TID #30 tab 06/24/17 [Augmentin 500/125 MG TAB (*)] Ciprofloxacin/Dexamethasone 4 drops OTIC BID #1 bottle 06/24/17 [Ciprodex] Venlafaxine Xr [Effexor Xr] 150 mg PO DAILY #15 cap 06/24/17 MDM/Departure - [facility] ED Course/Re-evaluation: Discussion: Otitis media and externa-possible ruptured TM. I discussed case briefly with the on-call ENT physician, Dr. Salas who agrees with the plan of Ciprodex and Augmentin. The patient also asked for refills of his Neurontin and Effexor. Explained that I would give him a small supply of Effexor that he takes for depression 150 mg XR but he will need to get his Neurontin script refill by his primary care physician. - Depart Disposition: Home, Routine, Self-Care Clinical Impression: Prescription refill Otitis externa Qualifiers: Otitis externa type: unspecified type Chronicity: acute Laterality: left Qualified Code(s): H60.502 - Unspecified acute noninfective otitis externa, left ear Condition: Good Instructions: Otitis Externa (ED), Ear Infection (ED) Additional Instructions: Diagnoses: 1. Otitis media 2. Otitis externa 3. Prescription refill Plan: Call primary care physician to arrange for refill of her gabapentin and for more Effexor. Augmentin antibiotic orally and Ciprodex antibiotics/steroid to external canal of left ear 4 drops 2 times a day Call Dr. Salas-ear nose throat physician today to arrange follow-up appointment for recheck in 5-7 days. Return for any significant worsening despite the treatment plan Prescriptions: Amox Tr/K Clav (Augmentin) [Augmentin 500/125 MG TAB (*)] 500 mg PO TID #30 tab Ciprofloxacin/Dexamethasone [Ciprodex] 4 drops OTIC BID #1 bottle Venlafaxine Xr [Effexor Xr] 150 mg PO DAILY #15 cap Referrals: JAMAICA CHAMBERLAIN [Primary Care Provider] - As per Instructions
== END 2017-06-24 14:50 | disposition home or self-care (01) ==
LOC: CED 14:13
DX: Z76.0 Encounter for issue of repeat prescription (principal); H60.502 Unspecified acute noninfective otitis externa, left ear; F17.200 Nicotine dependence, unspecified, uncomplicated

== ENCOUNTER 2018-05-05 13:24 | Emergency (ER) | payer MEDICAID ==
[2018-05-05 13:41] VITALS: BP 142/86
[2018-05-05] MEDS ORDERED: AZITHROMYCIN 250 MG TAB PO ONE (13:50)
[2018-05-05] MEDS ORDERED: cefTRIAXone 250 MG VIAL IM ONE (13:51)
--- NOTE | 2018-05-05 13:56 | EDPHY ---
H & P Stated Complaint: difficulty urinating since yesterday Time Seen by Provider: 05/05/18 13:31 HPI/ROS: Chief Complaint: Burning with urination HPI: 32-year-old male presenting with burning with urination was started last night. Patient states the symptoms began after he has sexual relations with a woman last night. He had similar episode 2 weeks ago with a different woman was seen at [facility]. At that time he was given ceftriaxone and azithromycin. No urethral discharge. States it stover a little bit mostly at the end of urination. He does not use barrier contraception. No fevers or chills. No rash. ROS: 10 systems were reviewed and were negative except those elements noted in the HPI. PMH: Bipolar disorder Social History: Positive smoking, occasional alcohol, occasional heroin Family History: non-contributory Physical Exam: Gen: Awake, Alert, No Distress HEENT: Nose: no rhinorrhea Eyes: PERRLA, EOMI Mouth: Moist mucosa Neck: Supple, no JVD Chest: nontender, lungs clear to auscultation Heart: S1, S2 normal, no murmur Abd: Soft, non-tender, no guarding Genital: No rash or lesions Back: no CVA tenderness, no midline tenderness Ext: no edema, non-tender Skin: no rash Neuro: CN II-XII intact, Sensation grossly intact, Strength 5/5 in bilateral upper and lower extremities - Medical/Surgical History Hx Asthma: No Hx Chronic Respiratory Disease: No Hx Diabetes: No Hx Cardiac Disease: No Hx Renal Disease: No Hx Cirrhosis: No Hx Alcoholism: No Hx HIV/AIDS: No Hx Splenectomy or Spleen Trauma: No Other PMH: PMHx: bipolar, anxiety. PSHx: denies - Social History Smoking Status: Current every day smoker Constitutional: Initial Vital Signs Temperature (C) 36.6 C 05/05/18 13:31 Heart Rate 72 05/05/18 13:31 Respiratory Rate 18 05/05/18 13:31 Blood Pressure 142/86 H 05/05/18 13:31 O2 Sat (%) 98 05/05/18 13:31 O2 Delivery Mode Room Air Allergies/Adverse Reactions: tree nut [Nuts] Allergy (Verified 04/16/17 07:37) Home Medications: Medication Instructions Recorded NK [No Known Home Meds] 05/05/18 Medical Decision Making ED Course/Re-evaluation: 32-year-old male with dysuria after unprotected intercourse. Will treat him with azithromycin and ceftriaxone. GC and Chlamydia drain from 7 sent. Will follow up as outpatient. He has been counseled to always use a condom. Departure - Departure Disposition: Home, Routine, Self-Care Clinical Impression: Dysuria Condition: Good Instructions: Dysuria (ED) Additional Instructions: Always wear a condom when you have sexual intercourse. You're STI culture results should be back tomorrow. Follow up with primary care physician for any concerns. Referrals: JAMAICA CHAMBERLAIN [Primary Care Provider] - As per Instructions
[2018-05-06 11:09] LABS: GC AMPLIFICATION GENPROBE NEGATIVE (NEGATIVE)
== END 2018-05-05 14:11 | disposition home or self-care (01) ==
LOC: CED 13:24
DX: R30.9 Painful micturition, unspecified (principal); Z20.2 Contact with and (suspected) exposure to infections with a predominantly sexual mode of transmission; F31.9 Bipolar disorder, unspecified; F17.200 Nicotine dependence, unspecified, uncomplicated; F41.9 Anxiety disorder, unspecified
CPT/HCPCS: J0696

== ENCOUNTER 2018-06-05 23:33 | Emergency (ER) | payer MEDICAID ==
[2018-06-05] MEDS ORDERED: NS 1,000 ML IV ONE (23:57)
[2018-06-06] MEDS ORDERED: ONDANSETRON 4 MG/2 ML VIAL IVP ONE (00:21)
[2018-06-06] MEDS ORDERED: NS 1,000 ML IV ONE (00:38)
[2018-06-06] MEDS ORDERED: LIDOCAINE 2% VISCOUS 15 ML UDCUP PO ONE (00:39)
[2018-06-06] MEDS ORDERED: MAG HYDROX/AL HYDROX/SIMETH 30 ML UDCUP PO ONE (00:39)
--- NOTE | 2018-06-06 00:49 | EDPHY ---
H & P Stated Complaint: 2 days history of n/v/d Time Seen by Provider: 06/05/18 23:40 HPI/ROS: CC: Vomiting and diarrhea HPI: This 33-year-old male with past medical history of depression, anxiety, and substance abuse presents to the emergency department today stating that he has not been feeling well for the last 2 days. He has been having vomiting and states he vomited 8 times today. He has also had 5 episodes of diarrhea. No blood in the emesis or stool. He complains of epigastric cramping with an occasional sharp pain. He rates this at 6/10 at its worst. The pain does not radiate. Opp hot and cold today but does not know if he had a fever. He has had a runny nose recently. He states he smokes heroin and is coming off of a high. He last smoked heroin at 10am today. He drinks 3-4 shots a day and his last drink was yesterday. He also smokes marijuana and 1.5 ppd of tobacco. Although he has used methamphetamines in the past, he states he no longer uses meth. He denies other drug use and states he has never injected drugs. He has an appointment tomorrow at a local religious to support him as he tries to stop using drugs. REVIEW OF SYSTEMS: Constitutional: See HPI. Eyes: No discharge. ENT: No sore throat. Respiratory: No cough, no shortness of breath. Cardiac: Occasional chest pain in the center of his chest, non radiating. Gastrointestinal: See HPI. Genitourinary: No dysuria. Musculoskeletal: No back pain. Skin: No rashes. Neurological: No headache. Source: Patient Exam Limitations: No limitations - Personal History Current Tetanus/Diphtheria Vaccine: No Current Tetanus Diphtheria and Acellular Pertussis (TDAP): No - Medical/Surgical History PMH: PMH: Anxiety, depression, polysubstance abuse PSH: Denied FH: Denied NKDA; allergy to tree nuts Meds: Gabapentin, Effexor, dicyclomine PCP: Hx Asthma: No Hx Chronic Respiratory Disease: No Hx Diabetes: No Hx Cardiac Disease: No Hx Renal Disease: No Hx Cirrhosis: No Hx Alcoholism: No Hx HIV/AIDS: No Hx Splenectomy or Spleen Trauma: No Other PMH: PMHx: bipolar, anxiety, depression. PSHx: denies - Social History Smoking Status: Current every day smoker Additional Social History: The patient smokes 1.5 packs per day of tobacco and has been smoking for 13 years; he drinks 3-4 shots of alcohol per day; he smokes heroin and marijuana. He quit using methamphetamines. Denies ever using IV drugs. - Physical Exam Exam: General Appearance: Alert, no significant distress. Eyes: Pupils equal and round no pallor or injection. ENT, Mouth: Mucous membranes are moist. Large tonsils. No erythema. Respiratory: There are no retractions, lungs are clear to auscultation. Cardiovascular: Regular rate and rhythm. No murmurs, gallops, or rubs. Gastrointestinal: Abdomen is soft with tenderness to palpation over the epigastric region, no masses, bowel sounds normal. No rebound, guarding, or rigidity. Neurological: Awake and alert, sensory and motor exams grossly normal. Skin: Warm and dry, no rashes. Musculoskeletal: Neck is supple, nontender. Extremities are symmetrical, full range of motion. Psychiatric: Patient is oriented X 3, there is no agitation. DIFFERENTIAL DIAGNOSIS: After history and physical exam differential diagnosis was considered for but not limited to and in no particular order: [Viral syndrome, gastroenteritis, gastritis, pancreatitis, dehydration, electrolyte imbalance, opiate withdrawal, cardiac conduction disturbance, cardiac ischemia.] Constitutional: Initial Vital Signs Temperature (C) 97.9 F 06/05/18 23:46 Heart Rate 62 06/05/18 23:46 Respiratory Rate 16 06/05/18 23:46 Blood Pressure 132/77 H 06/05/18 23:46 O2 Sat (%) 94 06/05/18 23:46 O2 Delivery Mode Room Air Allergies/Adverse Reactions: tree nut [Nuts] Allergy (Verified 04/16/17 07:37) Home Medications: Medication Instructions Recorded Dicyclomine [Bentyl 10 MG (*)] 0 mg PO 06/05/18 Gabapentin [Neurontin 400 MG (*)] 0 mg PO HS 06/05/18 Venlafaxine Xr [Effexor Xr] 06/05/18 Medical Decision Making - Diagnostics EKG Interpretation: NSR, HR 62, no acute ischemic changes. No significant change from EKG dated . ED Course/Re-evaluation: The patient was seen and examined. Prior records were reviewed. Vital signs were reviewed and normal. Patient was given 2 L of IV fluid as well as 4 mg of Zofran IV push and a GI cocktail. His EKG was a normal sinus rhythm with a heart rate of 62 and no acute ischemic changes. Troponin was negative. Comprehensive metabolic panel was normal. CBC was normal except for a minimal elevation of the monocytes at 13.9. Lipase was normal. The patient was given a take-home pack of Zofran as well as lorazepam. He was encouraged to follow up with his primary care provider this coming week. - Data Points Laboratory Results: Laboratory Results 06/06/18 00:05 06/06/18 06/06/18 06/06/18 00:22 00:10 00:05 WBC 4.46 10^3/uL 10^3/uL (3.80-9.50) RBC 4.60 10^6/uL 10^6/uL (4.40-6.38) Hgb 14.7 g/dL g/dL (13.7-17.5) Hct 42.0 % % (40.0-51.0) MCV 91.3 fL fL (81.5-99.8) MCH 32.0 pg pg (27.9-34.1) MCHC 35.0 g/dL g/dL (32.4-36.7) RDW 13.8 % % (11.5-15.2) Plt Count 213 10^3/uL 10^3/uL (150-400) MPV 9.4 fL fL (8.7-11.7) Neut % (Auto) 53.0 % % (39.3-74.2) Lymph % (Auto) 30.9 % % (15.0-45.0) [place] % (Auto) 13.9 % H % (4.5-13.0) Eos % (Auto) 1.6 % % (0.6-7.6) Baso % (Auto) 0.4 % % (0.3-1.7) Nucleat RBC Rel Count 0.0 % % (0.0-0.2) Absolute Neuts (auto) 2.36 10^3/uL 10^3/uL (1.70-6.50) Absolute Lymphs (auto) 1.38 10^3/uL 10^3/uL (1.00-3.00) Absolute Monos (auto) 0.62 10^3/uL 10^3/uL (0.30-0.80) Absolute Eos (auto) 0.07 10^3/uL 10^3/uL (0.03-0.40) Absolute Basos (auto) 0.02 10^3/uL 10^3/uL (0.02-0.10) Absolute Nucleated RBC 0.00 10^3/uL 10^3/uL (0-0.01) Immature Gran % 0.2 % % (0.0-1.1) Immature Gran # 0.01 10^3/uL 10^3/uL (0.00-0.10) POC Sodium 136 mEq/L mEq/L (135-145) POC Potassium 3.8 mEq/L mEq/L (3.3-5.0) POC Chloride 104.0 mEq/L mEq/L (97-110) POC Total CO2 25 mEq/L mEq/L (22-31) POC BUN 18 mg/dL mg/dL (7-23) POC Creatinine 1.1 mg/dL mg/dL (0.7-1.3) POC Glucose 111 mg/dL H mg/dL (70-100) POC Calcium 8.9 mg/dL mg/dL (8.5-10.4) POC Total Bilirubin 0.6 mg/dL mg/dL (0.1-1.4) POC AST 39 IU/L IU/L (17-59) POC ALT 27 IU/L IU/L (21-72) POC Alk Phosphatase 67 IU/L IU/L (38-126) POC Troponin I 0.00 ng/mL ng/mL (0.00-0.08) POC Total Protein 6.8 g/dL g/dL (6.3-8.2) POC Albumin 3.6 g/dL g/dL (3.5-5.0) Lipase 06/06/18 00:05 WBC RBC Hgb Hct MCV MCH MCHC RDW Plt Count MPV Neut % (Auto) Lymph % (Auto) [place] % (Auto) Eos % (Auto) Baso % (Auto) Nucleat RBC Rel Count Absolute Neuts (auto) Absolute Lymphs (auto) Absolute Monos (auto) Absolute Eos (auto) Absolute Basos (auto) Absolute Nucleated RBC Immature Gran % Immature Gran # POC Sodium POC Potassium POC Chloride POC Total CO2 POC BUN POC Creatinine POC Glucose POC Calcium POC Total Bilirubin POC AST POC ALT POC Alk Phosphatase POC Troponin I POC Total Protein POC Albumin Lipase 55 IU/L IU/L (23-300) Medications Given: Discontinued Medications Al Hydroxide/Mg Hydroxide (Maalox Susp) 30 ml PO EDNOW ONE Stop: 06/06/18 00:40 Last Admin: 06/06/18 00:43 Dose: 30 ml Sodium Chloride (Ns) 1,000 mls @ 0 mls/hr IV ONCE ONE; Wide Open PRN Reason: Protocol Stop: 06/05/18 23:58 Last Admin: 06/06/18 00:07 Dose: 1,000 mls Sodium Chloride (Ns) 1,000 mls @ 0 mls/hr IV ONCE ONE; Wide Open PRN Reason: Protocol Stop: 06/06/18 00:39 Last Admin: 06/06/18 00:43 Dose: 1,000 mls Lidocaine (Lidocaine 2% Viscous) 5 ml PO EDNOW ONE Stop: 06/06/18 00:40 Last Admin: 06/06/18 00:43 Dose: 5 ml Ondansetron HCl (Zofran) 4 mg IVP EDNOW ONE Stop: 06/06/18 00:22 Last Admin: 06/06/18 00:33 Dose: 4 mg Point of Care Test Results: Chemistry 06/06/18 06/06/18 00:22 00:10 POC Sodium 136 mEq/L mEq/L (135-145) POC Potassium 3.8 mEq/L mEq/L (3.3-5.0) POC Chloride 104.0 mEq/L mEq/L (97-110) POC Total CO2 25 mEq/L mEq/L (22-31) POC BUN 18 mg/dL mg/dL (7-23) POC Creatinine 1.1 mg/dL mg/dL (0.7-1.3) POC Glucose 111 mg/dL H mg/dL (70-100) POC Calcium 8.9 mg/dL mg/dL (8.5-10.4) POC Total Bilirubin 0.6 mg/dL mg/dL (0.1-1.4) POC AST 39 IU/L IU/L (17-59) POC ALT 27 IU/L IU/L (21-72) POC Alk Phosphatase 67 IU/L IU/L (38-126) POC Troponin I 0.00 ng/mL ng/mL (0.00-0.08) POC Total Protein 6.8 g/dL g/dL (6.3-8.2) POC Albumin 3.6 g/dL g/dL (3.5-5.0) Departure - Departure Disposition: Home, Routine, Self-Care Clinical Impression: Vomiting and diarrhea, Epigastric pain, Heroin abuse Condition: Good Instructions: Lorazepam (By mouth), Ondansetron (By mouth), Acute Nausea and Vomiting (ED), Acute Diarrhea (ED), Narcotic Use Disorder (ED) Additional Instructions: Rest. Drink plenty of fluids. Follow up with your primary care provider (at [facility]) this coming week. Talk to your primary care provider about resources to help you abstain from drug and alcohol abuse. You stated you already have resources to help you quit using tobacco products as well. Return to the emergency room if any further problems or concerns. Referrals: JAMAICA CHAMBERLAIN [Non Staff and Non MD] - As per Instructions
[2018-06-06 01:03] LABS: PLATELET COUNT 213 10^3/uL (150-400)
--- NOTE | 2018-06-06 01:03 | CPEKG ---
Test Reason : OPEN Blood Pressure : / mmHG Vent. Rate : 062 BPM Atrial Rate : 063 BPM P-R Int : 152 ms QRS Dur : 086 ms QT Int : 430 ms P-R-T Axes : 055 044 064 degrees QTc Int : 437 ms Sinus rhythm Confirmed by Ruby Acuna [id number]) on 06/06/2018 1:02:49 AM Referred By: Confirmed By:Ruby Acuna
[2018-06-06] MEDS ORDERED: ONDANSETRON 4MG PREPACK#2 BTL TAKEHOME ONE (01:11)
[2018-06-06] MEDS ORDERED: LORAZEPAM 1 MG PREPACK#4 BTL TAKEHOME ONE (01:11)
[2018-06-06 01:35] VITALS: BP 121/59
== END 2018-06-06 01:30 | disposition home or self-care (01) ==
LOC: CED 23:33
DX: R11.10 Vomiting, unspecified (principal); R19.7 Diarrhea, unspecified; F11.10 Opioid abuse, uncomplicated; F31.9 Bipolar disorder, unspecified; E86.9 Volume depletion, unspecified; F17.200 Nicotine dependence, unspecified, uncomplicated
CPT/HCPCS: 80053-ER; 84484-ER; 96361-ER; 96374-ER; 99284-ER; J2405

== ENCOUNTER 2018-11-12 08:51 | Emergency (ER) | payer MEDICAID | END 2018-11-12 09:16 | disposition left against medical advice (07) | LOC: CED 08:51 ==